=== PATIENT | male | born 1990 | race Caucasian/White ===

== ENCOUNTER 2019-05-24 17:42 | Emergency (ER) | payer OTHER ==
[~2019-05-24] VITALS: Ht 172.7 cm; Wt 93.0 kg
[2019-05-24 17:56] VITALS: Ht 172.7 cm; Wt 93.0 kg
[2019-05-24 18:34] LABS: BASOPHIL % 0.6 % (0-2); PLATELET COUNT 243 x10^3mcL (130-400); RED CELL DISTRIBUTION WIDTH 13.8 % (11.5-14.5)
[2019-05-24 19:20] LABS: ALBUMIN 4.1 g/dL (3.4-5.0); CARBON DIOXIDE 27.6 mmol/L (21-32); CHLORIDE SERUM 102 mmol/L (98-107); CREATININE SERUM 1.1 mg/dL (0.7-1.3); GFR1 > 60 mL/min; GLUCOSE SERUM 94 mg/dL (74-106); POTASSIUM SERUM 3.8 mmol/L (3.5-5.1); SODIUM SERUM 141 mmol/L (136-145); TOTAL PROTEIN, SERUM 8.1 g/dL (6.4-8.2)
[2019-05-24 19:21] LABS: ALKALINE PHOSPHATASE 96 U/L (46-116); ALT/SGPT 34 U/L (16-63); AST/SGOT 19 U/L (15-37); BILIRUBIN TOTAL 0.44 mg/dL (0.20-1.00); CALCIUM 8.7 mg/dL (8.5-10.1); LIPASE 93 IU/L (73-393)
[2019-05-24 19:30] LABS: microscopic required? NO
[2019-05-24 19:57] LABS: UA SPECIFIC GRAVITY >=1.030 (1.005-1.035); urine erythrocyte NEGATIVE (NEGATIVE)
[2019-05-24 20:22] VITALS: BP 126/87
== END 2019-05-24 20:22 | disposition home or self-care (01) ==
LOC: ED 17:42
PROVIDERS: Emergency Medicine
DX: R07.89 Other chest pain (principal); R10.816 Epigastric abdominal tenderness; J11.1 Influenza due to unidentified influenza virus with other respiratory manifestations; R19.7 Diarrhea, unspecified
CPT/HCPCS: 87804; J1885; J2405; J7030; Q0092

== ENCOUNTER 2019-05-25 16:30 | Emergency (ER) | payer OTHER ==
[~2019-05-25] VITALS: Ht 172.7 cm; Wt 94.8 kg
[2019-05-25 16:53] VITALS: Ht 172.7 cm; Wt 94.8 kg
[2019-05-25 18:14] VITALS: BP 135/100
== END 2019-05-25 18:14 | disposition home or self-care (01) ==
LOC: ED 16:30
DX: R10.816 Epigastric abdominal tenderness (principal)